=== PATIENT | male | born 1995 | race African-American/Black ===

== ENCOUNTER → 2016-08-30 18:37 | Emergency (ER) | payer BC | END | disposition home or self-care (01) | LOC: CFTX 18:37 | DX: S19.9XXA Unspecified injury of neck, initial encounter (principal); S69.91XA Unspecified injury of right wrist, hand and finger(s), initial encounter; S49.92XA Unspecified injury of left shoulder and upper arm, initial encounter; V43.62XA Car passenger injured in collision with other type car in traffic accident, initial encounter; Y92.410 Unspecified street and highway as the place of occurrence of the external cause | CPT/HCPCS: 99283 ==